=== PATIENT | female | born 1955 | race American Indian/Alaskan Native ===

== ENCOUNTER 2016-11-20 10:51 | Day surgery (SDC) | payer OTHER | END 2016-11-20 10:52 | disposition home or self-care (01) | LOC: GIO 10:51 | PROVIDERS: ATTEND Internal Medicine Gastroenterology | DX: B96.81 Helicobacter pylori [H. pylori] as the cause of diseases classified elsewhere (principal); Z53.8 Procedure and treatment not carried out for other reasons ==

== ENCOUNTER 2017-01-05 09:43 | Day surgery (SDC) | payer OTHER ==
--- NOTE | 2017-01-05 10:26 | Anesthesia Consultation ---
Anesthesia Consult and Med Hx Date of service: 01/05/17 - Airway Anesthetic Teeth Evaluation: Poor (some missing teeth) ROM Head & Neck: Adequate Mental/Hyoid Distance: Adequate Mallampati Class: Class II Intubation Access Assessment: Probably Good - Pre-Operative Health Status ASA Pre-Surgery Classification: ASA2 Proposed Anesthetic Plan: MAC - Pulmonary Hx Smoking: No - Cardiovascular System Hx Hypertension: No - Gastrointestinal Hx Gastroesophageal Reflux Disease: Yes (H.pylori) - Endocrine Hx Renal Disease: No Hx Liver Disease: Yes (hepatitis C) - Other Systems Hx Obesity: Yes (BMI 39.5)
--- NOTE | 2017-01-05 10:27 | Anesthesia Day of Surgery ---
Anesthesia Day of Surgery - Day of Surgery Patient Examined: Yes Patient H&P Reviewed: Yes Patient is NPO: Yes
[2017-01-05] MEDS ORDERED: NACL 0.9% 1000 ML 1,000 ML IV SCH (11:00)
[2017-01-05] MEDS ORDERED: DIPRIVAN 10 MG/ML IV ONE ×2 (15:25→15:26)
[2017-01-05] MEDS ORDERED: WATER FOR IRRIG STERILE IR ONE (15:29)
[2017-01-05] MEDS ORDERED: XYLOCAINE MPF 2% ONE (15:35)
--- NOTE | 2017-01-05 15:43 | History and Physical Report ---
History of Present Illness Date of examination: 01/05/17 Date of admission: 01/05/2017 Chief complaint: Epigastric pain, dyspepsia, history of H. pylori infection History of present illness: Patient is a 61-year-old female who presents for evaluation because of epigastric pain with bloating and gas. She has a past history of Helicobacter pylori infection previously been treated. She however has persistent symptoms now presents for evaluation with an upper endoscopy. Medications and Allergies Allergies Allergy/AdvReac Type Severity Reaction Status Date / Time No Known Allergies Allergy Verified 12/18/16 10:46 Active Meds: Active Medications Sodium Chloride (Nacl 0.9% 1000 Ml) 1,000 mls @ 50 mls/hr IV DIRECT SHAN Last Admin: 01/05/17 11:06 Dose: 50 mls/hr Review of Systems All systems: negative Exam - Constitutional Vitals: Temp Pulse Resp BP Pulse Ox 97.5 F L 52 L 16 144/70 100 01/05/17 10:31 01/05/17 10:31 01/05/17 10:31 01/05/17 10:31 01/05/17 10:31 General appearance: Present: no acute distress, well-nourished - EENT Eyes: Present: PERRL ENT: hearing intact, clear oral mucosa - Neck Neck: Present: supple, normal ROM - Respiratory Respiratory effort: normal Respiratory: bilateral: CTA - Cardiovascular Heart Sounds: Present: S1 & S2. Absent: rub, click - Extremities Extremities: pulses symmetrical, No edema Peripheral Pulses: within normal limits - Abdominal General gastrointestinal: Present: soft, non-tender, non-distended, normal bowel sounds Female genitourinary: Present: normal - Integumentary Integumentary: Present: clear, warm, dry - Musculoskeletal Musculoskeletal: gait normal, strength equal bilaterally - Psychiatric Psychiatric: appropriate mood/affect, intact judgment & insight - Neurologic Neurologic: CNII-XII intact, moves all extremities Assessment and Plan Epigastric pain dyspepsia history of H. pylori infection. Plan: Upper endoscopy.
--- NOTE | 2017-01-05 15:52 | Operative Report ---
Operative Report Operative Report: Date of procedure: 01/05/2017 Procedure: Esophagogastroduodenoscopy with multiple mucosal biopsies. Attending physician: Handy Nichole MD [employer]iled Tub[employer] Supervisor: Handy Nichole MD Indication: Patient is a 61-year-old female who presented history of epigastric pain persistent dyspepsia. She has a past history of Helicobacter pylori infection. An upper endoscopy is done to assess patient so that treatment may be directed based on the findings. Consent: Informed consent was obtained after advising the patient and family regarding nature of this procedure, its indications, potential benefits as well as possible complications including but not limited to bleeding perforation and adverse reaction to medication, infection as well as other cardiopulmonary complications. An informed written and verbal consent was then obtained after due opportunity was provided for questions and answers. Monitoring: Patient was monitored continuously with pulse oximetry and electrocardiographic recordings as well as blood pressure recordings. Vital signs remained stable throughout this procedure with no untoward events. Preoperative assessment: Patient was assessed immediately prior to this procedure for capacity to tolerate monitored anesthesia care and moderate sedation as well as general anesthesia. Patient's ASA classification is 2, Mallampati class is 2, Hyomental distance is 3. Instrument: [id number] video endoscope Medications: Propofol given intravenously in divided doses. For details please refer to anesthesia records. Description of procedure: Patient was placed in the left lateral decubitus position after achieving sedation, the endoscope was introduced into the esophagus under direct vision. It was then advanced beyond the esophagus into the stomach and then beyond the stomach into the duodenum and to the second portion of the duodenum. It was subsequently withdrawn with careful inspection of all mucosal surfaces with the following findings. Findings: The Z line was irregular at 39 cm. There was erythema at the gastroesophageal junction. And a small sliding hiatal hernia seen on entry into the stomach at this point. The hernia measured 1-2 cm. There were multiple erosions seen in the gastric antrum with erythema of the gastric antrum and body. The duodenum was normal to second portion. Biopsies were obtained from the antrum for histopathology. Impression: Hiatal hernia. Mucosal changes suggestive of gastritis. Plan: Follow pathology report and direct additional treatment based on the pathology report.
--- NOTE | 2017-01-05 16:17 | Post Anesthesia Evaluation ---
- Post Anesthesia Evaluation Patient Participated: No (pt resting comfortably) Airway Patent: Yes Stable Respiratory Function: Yes Nausea/Vomiting: No Temp > 96.8F: Yes Pain Manageable: Yes Adequeate Hydration: Yes Anesthesia Complications: No Block Receding Appropriately: Not Applicable Patient on Ventilator: No
[2017-01-05 16:23] VITALS: BP 155/73
== END 2017-01-05 09:44 | disposition home or self-care (01) ==
LOC: GIO 09:43
PROVIDERS: ATTEND Internal Medicine Gastroenterology
DX: K25.9 Gastric ulcer, unspecified as acute or chronic, without hemorrhage or perforation (principal); K22.8 Other specified diseases of esophagus; K44.9 Diaphragmatic hernia without obstruction or gangrene; K21.9 Gastro-esophageal reflux disease without esophagitis; B19.20 Unspecified viral hepatitis C without hepatic coma; E66.9 Obesity, unspecified; Z68.39 Body mass index [BMI] 39.0-39.9, adult; Z86.19 Personal history of other infectious and parasitic diseases
CPT/HCPCS: 43239; J2704; J7030; 88305; 88342